=== PATIENT | male | born 1950 | race Caucasian/White ===

== ENCOUNTER 2017-01-27 16:32 | Emergency (ER) | payer OTHER ==
[~2017-01-27] VITALS: Ht 182.9 cm; Wt 77.6 kg
[2017-01-27 18:36] VITALS: BP 138/91
== END 2017-01-27 18:36 | disposition home or self-care (01) ==
LOC: ED 16:32
DX: L30.9 Dermatitis, unspecified (principal); L03.115 Cellulitis of right lower limb